=== PATIENT | female | born 1940 | race Caucasian/White ===

== ENCOUNTER 2017-08-19 09:13 | Observation (INO) | payer OTHER, MEDICARE ==
[~2017-08-19] VITALS: Ht 162.6 cm; Wt 87.1 kg
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
--- NOTE | 2017-08-19 17:10 | NUR ---
DR. SOLIS AWARE OF POTASSIUM LEVEL. ORDERS RECIEVED TO HANG KCL 40 MEQ. MAG LEVEL ADDED TO LABS. PATIENT IS SITTING UP IN BED TO TAKE CLEAR LIQUIDS. DENEIS NAUSEA.
--- NOTE | 2017-08-19 18:05 | NUR ---
C/O PAIN AT IV SITE. KCL RIDER DECREASED TO 100 ML. UP TO COMMODE TO EXPELL MED STOOL, VOID QS AMOUNT OF CLEAR YELLOW. BACK TO BED W/O INCIDENT. MOVING VERY WELL REQUIRES LITTLE ASSIST.
--- NOTE | 2017-08-19 19:03 | NUR ---
REPORT TO NEXT SHIFT.
--- NOTE | 2017-08-19 21:22 | EKG ---
[facility] [address] [facility] [place] [address] Signed Sinus rhythm with frequent premature ventricular complexes Nonspecific ST abnormality Abnormal ECG No previous ECGs available Confirmed by STEFAN ZAMARRIPA MD ([id number]) on 08/19/2017 9:22:06 PM Electronically Signed By: STEFAN ZAMARRIPA MD 08/19/172121 PATIENT NAME: USHA BHATT Electrocardiogram DATE OF : 40 PHYSICIAN: STEFAN ZAMARRIPA MD REPORT #: [id number] REPORT IS CONFIDENTIAL AND NOT TO BE RELEASED WITHOUT AUTHORIZATION
--- NOTE | 2017-08-19 23:14 | NUR ---
PT NOTED TO APPEAR TO HAVE MORE PAIN WITH MOVEMENT. STATES IT HURTS A LITTLE MORE ACROSS CHEST WITH DEEP BREATHING. ADMINISTERED 1 TAB NORCO PO. NO MORE NAUSEA. PT WAS NAUSEAUS AFTER UP TO BSC AND 4MG ZOFRAN WAS GIVEN IV AT THAT TIME. 2L 02 NC PLACED FOR SPO2 96-90% WHEN ASLEEP.
--- NOTE | 2017-08-20 02:25 | NUR ---
PT ASLEEP. 02 ON. NO S/S OF DISTRESS.
--- NOTE | 2017-08-20 05:01 | NUR ---
IN TO SEE PT AT 0445. PT REPORTS FEELING MORE 'ACHES AND PAINS'. L JAW PAIN 3/10, TENDER ON INTERIOR, PAIN ACROSS UPPER BACK. ADMINISTERED 1 TAB NORCO PO.
--- NOTE | 2017-08-20 06:18 | NUR ---
PT UP TO BSC STANDBY ASSIST AT 0540. VOIDED 375ML. MOVES MINIMAL S/S OF PAIN.
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
--- NOTE | 2017-08-20 06:34 | NUR ---
PT DOWN TO XRAY VIA W/C. REMAINS ON MONITOR.
--- NOTE | 2017-08-20 06:47 | NUR ---
PT BACK FROM XRAY. PLACED ON 1L O2 NC.
--- NOTE | 2017-08-20 07:30 | NUR ---
BEDSIDE REPORT RECIEVED.
--- NOTE | 2017-08-20 08:30 | NUR ---
NORCO 2 TABS GIVEN FOR PAIN.
--- NOTE | 2017-08-20 08:59 | NUR ---
TOOK CLEAR LIQUIDS WELL. DENEIS NAUSEA.
--- NOTE | 2017-08-20 09:00 | NUR ---
UP TO COMMODE. SPONGE BATH GIVEN. THEN TO CHAIR. DENIES PROBLEMS. O2 OFF.
[2017-08-20] MEDS ORDERED: LOVASTATIN40 MG PO (10:55)
[2017-08-20] MEDS ORDERED: HYDROCHLOROTHIA25 MG PO (10:58)
[2017-08-20] MEDS ORDERED: LEVO-T137 MCG PO (10:59)
[2017-08-20] MEDS ORDERED: PAXIL20 MG PO (11:00)
--- NOTE | 2017-08-20 11:00 | NUR ---
DR. SOLIS HERE TO SEE PATIENT. DISCHARGE ORDERS RECIEVED.
[2017-08-20] MEDS ORDERED: VITAMIN D32000 UNI1 PO (11:01)
--- NOTE | 2017-08-20 11:10 | NUR ---
IVF TO OFF. MONITOR DC'D.
--- NOTE | 2017-08-20 11:30 | NUR ---
AMBULATED IN HALLWAY WITH STAFF. TOLERATED AMBULATION WELL. DENIES INCREASED SHORTNESS OF BREATH. HAS SLIGHT CHEST DISCOMFORT IN RIGHT UPPER CHEST. O2 SAT ON RA 94.
[2017-08-20] MEDS ORDERED: NORCO 5-325 TA1 EACH PO (11:45)
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
[2017-08-21] MEDS ORDERED: PERCOCET 7.5-31 EACH PO (15:45)
== END 2017-08-20 13:50 | disposition home or self-care (01) ==
LOC: ED 09:13 → CCU 09:14
PROVIDERS: ADMIT Colon & Rectal Surgery
DX: S27.0XXA Traumatic pneumothorax, initial encounter (principal); S22.41XA Multiple fractures of ribs, right side, initial encounter for closed fracture; E27.8 Other specified disorders of adrenal gland; E87.6 Hypokalemia; I10 Essential (primary) hypertension; H91.90 Unspecified hearing loss, unspecified ear; E89.0 Postprocedural hypothyroidism; V48.6XXA Car passenger injured in noncollision transport accident in traffic accident, initial encounter; Y92.411 Interstate highway as the place of occurrence of the external cause; Z88.2 Allergy status to sulfonamides; Z79.899 Other long term (current) drug therapy; Z23 Encounter for immunization
CPT/HCPCS: 36415; 71046; 71250; 71260; 71270; 73030; 80048; 80053; 83735; 84100; 84484; 85025; 85610; 85730; 90471; 90662; 90715; 93005; 93010; 96361; 96372; 96375; 99285; G0008; G0378; J1885; J2405; J3480; J7060; J7120

== ENCOUNTER 2017-08-21 14:32 | Emergency (ER) | payer OTHER, MEDICARE ==
[~2017-08-21] VITALS: Ht 162.6 cm; Wt 87.1 kg
[~2017-08-21 14:32] MED LIST: HYDROCHLOROTHIA25 MG PO; LEVO-T137 MCG PO; LOVASTATIN40 MG PO; NORCO 5-325 TA1 EACH PO; PAXIL20 MG PO; VITAMIN D32000 UNI1 PO
[2017-08-21] MEDS ORDERED: PERCOCET 7.5-31 EACH PO (15:45)
== END 2017-08-21 16:21 | disposition home or self-care (01) ==
LOC: ED 14:32
DX: S22.41XA Multiple fractures of ribs, right side, initial encounter for closed fracture (principal); I10 Essential (primary) hypertension; Z88.2 Allergy status to sulfonamides; Z79.899 Other long term (current) drug therapy; V89.2XXA Person injured in unspecified motor-vehicle accident, traffic, initial encounter
CPT/HCPCS: 71046; 99283